=== PATIENT | male | born 1990 | race Asian ===

== ENCOUNTER 2023-03-04 14:52 | Outpatient (CLI) | payer OTHER, SELFPAY ==
[2023-03-04 17:20] LABS: Thyroid Stimulating Hormone < 0.015 uIU/mL (0.465-4.680)
[2023-03-04 17:56] LABS: Free T4 Free Thyroxine 1.68 ng/mL (0.78-2.19); Vitamin D 25 Hydroxy 42.8 ng/mL
[2023-03-07 13:46] LABS: Thyroid Stimulating Immunoglob 93 % baseline (<140)
== END 2023-03-04 14:53 | disposition home or self-care (01) ==
LOC: ANHWCLAB 14:53
PROVIDERS: PCP Physician Assistant Medical; Visit Provider Internal Medicine Endocrinology, Diabetes & Metabolism
DX: E05.00 Thyrotoxicosis with diffuse goiter without thyrotoxic crisis or storm (principal); R79.89 Other specified abnormal findings of blood chemistry; E04.9 Nontoxic goiter, unspecified
CPT/HCPCS: 36415; 82306; 84439; 84443; 84445; 84480; 84481

== ENCOUNTER 2023-09-30 14:25 | Outpatient (CLI) | payer OTHER, SELFPAY ==
[2023-09-30 16:43] LABS: Hematocrit 47.6 % (42.0-52.0); Hemoglobin 16.8 g/dL (14.0-18.0); Mean Corpuscular HGB Conc 35.3 g/dl (32-36); Mean Corpuscular Hemoglobin 32.2 pg (26-34); Mean Corpuscular Volume 91.2 fl (80-100); Mean Platelet Volume 9.6 fl (7.4-10.4); Platelet Count Result 374 k/mm3 (150-375); Red Blood Count 5.22 M/mm3 (4.6-6.20); Red Cell Distribution Width 12.5 % (11.5-14.5); White Blood Count 5.7 K/mm3 (4.5-10.0)
[2023-09-30 17:22] LABS: Alanine Aminotransferase 52 U/L (6-50); Alkaline Phosphatase 83 U/L (38-126); Anion Gap 11 mmol/L (4-12); Aspartate Amino Transferase 46 U/L (17-59); Bilirubin,Total 1.7 mg/dL (0.2-1.3); Blood Urea Nitrogen 16 mg/dL (9-20); Calcium 9.3 mg/dL (8.4-10.2); Carbon Dioxide 27 mmol/L (22-30); Chloride 103 mmol/L (98-107); Estimated Glomerular Filt Rate > 60; Sodium 141 mmol/L (137-145)
--- NOTE | 2023-09-30 17:40 | P.PNCROSS_ITS ---
Event Note Event Note Event Note: Called by lab about this patient's nonfasting blood sugar of 57. Asked to hand le it because they could not get into contact with Dr. Miranda. I contacted Dr. Miranda and let her know. She said she will contact the patient. End of report.
[2023-09-30 17:46] LABS: Glucose 52 mg/dL (65-110)
[2023-09-30 17:54] LABS: Free T4 Free Thyroxine 1.23 ng/mL (0.78-2.19)
== END 2023-09-30 14:26 | disposition home or self-care (01) ==
LOC: ANHWCLAB 14:26
PROVIDERS: PCP Physician Assistant Medical; Visit Provider Internal Medicine Endocrinology, Diabetes & Metabolism
DX: E05.00 Thyrotoxicosis with diffuse goiter without thyrotoxic crisis or storm (principal)
CPT/HCPCS: 36415; 80053; 84439; 84443; 85027

== ENCOUNTER 2023-10-08 14:42 | Outpatient (CLI) | payer OTHER, SELFPAY ==
[2023-10-08 17:21] LABS: Anion Gap 8 mmol/L (4-12); Blood Urea Nitrogen 14 mg/dL (9-20); Calcium 9.5 mg/dL (8.4-10.2); Carbon Dioxide 28 mmol/L (22-30); Chloride 103 mmol/L (98-107); Estimated Glomerular Filt Rate > 60; Glucose 96 mg/dL (65-110); Potassium 3.8 mmol/L (3.4-5.0); Sodium 139 mmol/L (137-145)
== END 2023-10-08 14:43 | disposition home or self-care (01) ==
LOC: ANHWCLAB 14:44
PROVIDERS: PCP Physician Assistant Medical; Visit Provider Internal Medicine Endocrinology, Diabetes & Metabolism
DX: R74.8 Abnormal levels of other serum enzymes (principal); E05.00 Thyrotoxicosis with diffuse goiter without thyrotoxic crisis or storm; E05.90 Thyrotoxicosis, unspecified without thyrotoxic crisis or storm; R73.09 Other abnormal glucose; R17 Unspecified jaundice
CPT/HCPCS: 36415; 80048

== ENCOUNTER 2025-01-18 09:10 | Outpatient (CLI) | payer OTHER, SELFPAY ==
--- OUTSIDE RECORDS SUMMARY | 2004-04-09 09:45 | XMS_ITS | Continuity of Care Document ---
Author Organization [facility] Address [address] [place] [address] Phone Care Team Providers Care Train Driver Name Role Phone Nick Dupree DO Unavailable Unavailable Advance Directives Directive Yes / No Effective Date File Name No Information Encounters Encounter Description Practice Location Reason(s) For Visit Diagnoses Date Provider Providers Copied on Encounter [facility], [address], [place], [place], [id number], tel:[phone] [facility] No Information Leia Hardin. [address] [place], [address], . tel: [phone] Family History Family Member Type Diagnosis Age At Onset No Information Payers Payer name Insurance type Covered libertarian ID Authorashley mcqueen(s) [facility] Custom Care CI [id number] Social History Type Description Quantity Date Captured Comments Sex Male Smoking Status No Information Chief Complaint And Reason For Visit No Information Reason For Referral Reason For Referral No Information History Of Present Illness Encounter Date Complaint History Of Prese nt Illness No Information Functional Status Date Functional Assessmen t No Information Instructions Date Instruction Additional Infor mation No Information Assessments Type Assessment Date No Information Patient Care Teams Name Effective Dates (start - stop) Status Members No Information
--- NOTE | 2025-01-18 | CONSULT_PTH ---
PATIENT: Juan Deng LOC: ANHLAB #:[id number] AGE/SX: 34/M ROOM: RE01/18/[address]: Ruth Carvalho MD : 1990 BED: DIS: 01/18/2025 SPEC #: [id number] RECD: 01/18/25 10:35 STATUS: LAZ REQ #: [id number] NAYLA: 01/18/25 00:[address]: Ruth Carvalho DEPT: [facility] Consult RECD BY: Lucy Owusu MLT, ([facility]) ENTERED: 01/18/25 10:36 SP TYPE: Consult OTHR DR: Michelle Ascencio PA-C Tissues: A - Peripheral Blood Procedures: Flow Cytometry
--- OUTSIDE RECORDS SUMMARY | 2025-01-18 09:56 | XMS_ITS | Clinical Summary ---
Author Organization [facility] Address [address] [place] [address] Care Team Providers Care Supervisor Cloth Winding Name Role Phone No, Physician Primary Care Provider [phone] Allergies No known active allergies Medications No known medications Active Problems Problem Noted Date Diagnosed Date Myopia of both eyes 12/23/2023 Assessment & Plan (12/23/2023 3:06 PM CDT): Referral by Dr. Garcia Myopia Good Ocular Health CL's out today Patient did not want eyes dilated today Return for pre-op before LASIK Discontinue CL's 3 days In House Retained orthopedic hardware 02/17/2019 Traumatic closed fracture of distal clavicle with minimal displacement, left, initial encounter 08/02/2018 Overview (08/02/2018): Added automatically from request for surgery [id number] Surgical History Surgery Date Site/Laterality Comments NO PAST SURGERIES Medical History Medical History Date Comments No known health problems Family History Medical History Relation Name Comments No Known Problems Father No Known Problems Maternal Grandfather No Known Problems Maternal Grandmother No Known Problems Mother No Known Problems Paternal Grandfather No Known Problems Paternal Grandmother Relation Name Status Comments Father Maternal Grandfather Maternal Grandmother Mother Paternal Grandfather Paternal Grandmother Social History Tobacco Use Types Packs/Day Years Used Date Smoking Tobacco: Never Smokeless Tobacco: Never Alcohol Use Standard Drinks/Week Comments Yes 0 (1 standard drink = 0.6 oz pur e alcohol) occasionally Sex and Gender Information Value Date Recorded Sex Assigned at Not on file Legal Sex Male 5:40 PM CDT Gender Identity Not on file Sexual Orientation Not on file Obstetrics History Last Filed Vital Signs Vital Sign Reading Time Taken Comments Blood Pressure 136/82 01/26/2019 11:20 AM CDT Pulse 68 01/26/2019 11:20 AM CDT Temperature 37 C (98.6 F) 01/26/2019 11:40 AM CDT Respiratory Rate 15 01/26/2019 11:20 AM CDT Oxygen Saturation 97% 01/26/2019 11:20 AM CDT Inhaled Oxygen Concentration - - Weight 62.1 kg (137 lb) 01/26/2019 6:34 AM CDT Height 172.7 cm (5' 8) 01/26/2019 6:34 AM CDT Body Mass Index 20.83 01/26/2019 6:34 AM CDT Plan of Treatment Health Maintenance Due Date Last Done Comments Depression Screening 1990 Hepatitis C Screening 1990 DTaP/Tdap/Td Vaccine (1 - Tdap) 2001 Varicella Vaccines (1 of 2 - 13+ 2-dose series) 08/31/2003 Hepatitis B Screening 2008 Regular Well Visit/Exam 18-64 2008 HPV Vaccines (1 - 3-dose SCD M series) 2017 Influenza Vaccine (#1) 2025 Pneumococcal vaccine <65 Aged Out No longer eligible based on patient's age to complete this topic Medical Devices Explanted Type Area Post Tensioning Ironworker Device Identifier Shelf Expiration Date Model / Serial / Lot Synthes Lcp Combi 120mm 7 Hole Lateral Extension Precontour Limit Contact - [id number] Implanted:Qty: 1 on 08/03/2018 by Madi Villagomez MD at [facility] Explanted:Qty: 1 on 01/26/2019 by Tracey Ahuja MD at [facility] Left: Clavicle Synthes I 092 / / Synthes 204.816 3.5mm 6mm 16mm 2.5mm Self Tap Small Hexagonal Socket Low Profile - [id number] Implanted:Qty: 1 on 08/03/2018 by Madi Villagomez MD at [facility] Explanted:Qty: 1 on 01/26/2019 by Tracey Ahuja MD at [facility] Left: Clavicle Synthes I 204.816 / / Synthes 201.766 2.4mm 16mm Self Tap Stardrive Cortex T8 Screw Bone - [id number] Implanted:Qty: 2 on 08/03/2018 by Madi Villagomez MD at [facility] Explanted:Qty: 2 on 01/26/2019 by Tracey Ahuja MD at [facility] Left: Clavicle Synthes I 201.766 / / Synthes 204.814 3.5mm 6mm 14mm 2.5mm Self Tap Small Hexagonal Socket Low Profile - [id number] Implanted:Qty: 1 on 08/03/2018 by Madi Villagomez MD at [facility] Explanted:Qty: 1 on 01/26/2019 by Tracey Ahuja MD at [facility] Left: Clavicle Synthes I 204.814 / / Synthes 204.812 3.5mm 6mm 12mm 2.5mm Self Tap Small Hexagonal Socket Low Profile - [id number] Implanted:Qty: 1 on 08/03/2018 by Madi Villagomez MD at [facility] Explanted:Qty: 1 on 01/26/2019 by Tracey Ahuja MD at [facility] Left: Clavicle Synthes I 204.812 / / Synthes 201.764 2.4mm 14mm Self Tap Stardrive Cortex T8 Screw Bone - [id number] Implanted:Qty: 5 on 08/03/2018 by Madi Villagomez MD at [facility] Explanted:Qty: 5 on 01/26/2019 by Tracey Ahuja MD at [facility] Left: Clavicle Synthes I 201.764 / / Synthes 204.842 3.5mm 6mm 42mm 2.5mm Self Tap Small Hexagonal Socket Low Profile - [id number] Implanted:Qty: 1 on 08/03/2018 by Madi Villagomez MD at [facility] Explanted:Qty: 1 on 01/26/2019 by Tracey Ahuja MD at [facility] Left: Clavicle Synthes I 204.842 / / Care Teams Supervisor Cloth Winding Relationship Specialty Start Date End Date No, Physician PCP - General 12/23/23
--- OUTSIDE RECORDS SUMMARY | 2025-01-18 09:56 | XMS_ITS | Clinical Summary ---
Author Organization [facility] Address [address] [place] [address] Care Team Providers Care Medical Clerical Assistant Name Role Phone Rob Spaulding MD Primary Care Provider [phone] Social History Tobacco Use Types Packs/Day Years Used Date Smoking Tobacco: Never Assessed Sex and Gender Information Value Date Recorded Sex Assigned at Not on file Legal Sex Male 7:33 PM CDT Gender Identity Male 07/30/2021 6:49 AM CDT Sexual Orientation Not on file Plan of Treatment Health Maintenance Due Date Last Done Comments Annual Physical 1993 Hepatitis C 2008 DTaP, Tdap and Td Vaccines ( 1 - Tdap) 2009 Hepatitis B Vaccines (1 of 3 - 19+ 3-dose series) 2009 HPV Vaccines (1 - 3-dose SCD M series) 2017 COVID-19 Vaccine ( - 2023-2 5 season) 2025 Meningococcal B Vaccine Aged Out No l onger eligible based on patient's age to complete this topic Meningococcal Vaccine Aged Out No davidson peter eligible based on patient's age to complete this topic Pneumococcal Vaccine: Pediat rics (0 to 5 Years) and At-Risk Patients (6 to 49 Years) Aged Out No longer eligible b ased on patient's age to complete this topic RSV Immunizations Under 20 Months Aged Out No longer eligible based on patient's age to complete this topic Insurance [facility] Care Teams Medical Clerical Assistant Relationship Specialty Start Date End Date Rob Spaulding MD [address] [place] [id number] PCP - General INTERNAL MEDICINE 08/02/20
[2025-01-18 10:14] LABS: Immature Reticulocyte Fraction 7.0 % (3.0-15.9); Reticulocyte Hemoglobin Conten 36.6 pg (28.2-36.6); Reticulocytes Absolute 0.10 10^6/uL (0.02-0.10)
[2025-01-18 10:30] LABS: Hematocrit 47.5 % (42.0-52.0); Hemoglobin 16.6 g/dL (14.0-18.0); Immature Granulocyte Percent A 0.3 % (0-0.5); Lymphocytes Absolute Auto 1.81 K/mm3 (0.9-3.2); Mean Corpuscular HGB Conc 34.9 g/dl (32-36); Mean Corpuscular Hemoglobin 32.4 pg (26-34); Mean Corpuscular Volume 92.6 fl (80-100); Nucleated Red Blood Cells Absolute Auto 0.000 K/mm3 (0.0-0.012); Nucleated Red Blood Cells Perc 0.0 % (0.0-0.2); Platelet Count Result 323 k/mm3 (150-375); Red Blood Count 5.13 M/mm3 (4.6-6.20); White Blood Count 6.7 K/mm3 (4.5-10.0)
[2025-01-18 10:34] LABS: Alanine Aminotransferase 49 U/L (6-50); Albumin Level 4.7 g/dL (3.5-5.1); Alkaline Phosphatase 75 U/L (38-126); Anion Gap 8 mmol/L (4-12); Aspartate Amino Transferase 41 U/L (17-59); Bilirubin,Total 1.6 mg/dL (0.2-1.3); Blood Urea Nitrogen 18 mg/dL (9-20); Calcium 9.9 mg/dL (8.4-10.2); Carbon Dioxide 28 mmol/L (22-30); Chloride 104 mmol/L (98-107); Estimated Glomerular Filt Rate > 60; Glucose 90 mg/dL (65-110); Potassium 3.9 mmol/L (3.4-5.0); Sodium 140 mmol/L (137-145); Total Protein 8.3 g/dL (6.3-8.2)
[2025-01-18 10:51] LABS: Free T4 Free Thyroxine 1.32 ng/dL (0.78-2.19)
[2025-01-18 11:09] LABS: Thyroid Stimulating Hormone 0.872 uIU/mL (0.465-4.680)
== END 2025-01-18 09:11 | disposition home or self-care (01) ==
LOC: ANHLAB 09:11
PROVIDERS: PCP Physician Assistant Medical; Visit Provider Internal Medicine Endocrinology, Diabetes & Metabolism
DX: E05.00 Thyrotoxicosis with diffuse goiter without thyrotoxic crisis or storm (principal); R17 Unspecified jaundice
CPT/HCPCS: 36415; 80053; 84439; 84443; 85025; 85046; 88184